=== PATIENT | female | born 1990 | race Hispanic/Latino ===

== ENCOUNTER 2021-05-31 15:48 | Emergency (ER) | payer MEDICAID, OTHER ==
[~2021-05-31] VITALS: Ht 152.4 cm; Wt 54.4 kg
[2021-05-31 15:50] VITALS: BP 137/89
[2021-05-31] MEDS ORDERED: TETANUS/DIPHTHERIA TOXOID [ADULT] 0.5 ML VIAL IM ONE ×2 (16:12→16:30)
[2021-05-31] MEDS ORDERED: HYDROCODONE/ACETAMINOPHEN 5/325 MG TAB ONE (16:12)
[2021-05-31] MEDS ORDERED: CYCLOBENZAPRINE HCL 10 MG TABLET ONE (16:12)
[2021-05-31] MEDS ORDERED: CYCLOBENZAPRINE HCL 10 MG TABLET PO ONE (16:30)
[2021-05-31] MEDS ORDERED: HYDROCODONE/ACETAMINOPHEN 5/325 MG TAB PO ONE (16:30)
[2021-05-31] MEDS ORDERED: NAPR-1180 PO (16:44)
[2021-05-31] MEDS ORDERED: CYCL10TA16 PO (16:44)
== END 2021-05-31 17:36 | disposition home or self-care (01) ==
LOC: EDH 15:48
DX: S20.212A Contusion of left front wall of thorax, initial encounter (principal); S60.211A Contusion of right wrist, initial encounter; S60.212A Contusion of left wrist, initial encounter; S80.02XA Contusion of left knee, initial encounter; S60.811A Abrasion of right wrist, initial encounter; S60.812A Abrasion of left wrist, initial encounter; S80.212A Abrasion, left knee, initial encounter; V43.62XA Car passenger injured in collision with other type car in traffic accident, initial encounter; Z79.1 Long term (current) use of non-steroidal anti-inflammatories (NSAID); V49.49XA Driver injured in collision with other motor vehicles in traffic accident, initial encounter; Y93.89 Activity, other specified; Y92.89 Other specified places as the place of occurrence of the external cause; Y99.8 Other external cause status
CPT/HCPCS: 71045; 73110; 73562; 81025; 90471; 90714; 96372

== ENCOUNTER 2023-07-17 10:26 | Emergency (ER) | payer OTHER ==
[~2023-07-17] VITALS: Ht 149.9 cm; Wt 54.4 kg
[~2023-07-17 10:26] MED LIST: CYCL10TA16 PO; NAPR-1180 PO
[2023-07-17 10:29] VITALS: BP 137/69; PULSE 88; RESP 16
[2023-07-17 11:11] LABS: BASOPHILS # (AUTO) 0.02 K/uL (0.00-0.20); BASOPHILS % (AUTO) 0.1 % (0.0-5.0); EOSINOPHILS # (AUTO) 0.02 K/uL (0.00-0.70); EOSINOPHILS % (AUTO) 0.1 % (0.0-8.0); HEMATOCRIT 38.2 % (36-48); IMMATURE GRANULOCYTE ABSOLUTE 0.07 K/uL (0-1); LYMPHOCYTES # (AUTO) 1.4 K/uL (1.0-4.8); MEAN CORPUSCULAR HEMOGLOBIN 33.3 pg (27.0-33.0); MEAN CORPUSCULAR HGB CONC 35.1 g/dL (32.0-36.0); MONOCYTES # (AUTO) 0.3 K/uL (0.1-1.0); MONOCYTES % (AUTO) 2.2 % (3.0-13.0); NEUTROPHILS # (AUTO) 13.4 K/uL (1.8-7.7); NEUTROPHILS % (AUTO) 88.1 % (40.0-77.0); PLATELET COUNT (AUTO) 240 K/uL (130-400); RED BLOOD CELL COUNT(AUTO) 4.02 MIL/uL (4.00-5.50); RED CELL DISTRIBUTION WIDTH 13.2 % (11.0-15.5); WHITE BLOOD COUNT (AUTO) 15.2 K/uL (4.8-10.8)
[2023-07-17 11:48] LABS: ALBUMIN 3.1 g/dL (3.5-5.0); BILIRUBIN,TOTAL 0.3 mg/dL (0.2-1.0); CREATININE 0.6 mg/dL (0.5-1.5); POTASSIUM 3.9 mmol/L (3.5-5.1); TOTAL PROTEIN, SERUM 7.2 g/dL (6.0-8.3)
[2023-07-17 12:10] LABS: APPEARANCE,URINE CLEAR (CLEAR); BILIRUBIN,URINE NEGATIVE (NEGATIVE); COLOR,URINE LIGHT-YELLOW (YELLOW); GLUCOSE, URINE (UA) NEGATIVE (NEGATIVE); KETONES,URINE NEGATIVE (NEGATIVE); LEUKOCYTE ESTERASE ,URINE NEGATIVE Leu/uL (NEGATIVE); NITRATE,URINE NEGATIVE (NEGATIVE); OCCULT BLOOD,URINE NEGATIVE (NEGATIVE); PH,URINE 5.5 (5.0-8.0); PROTEIN,URINE NEGATIVE (NEGATIVE); UROBILINOGEN,URINE 0.2 mg/dL (0.2-1.0)
[2023-07-17 12:12] LABS: ADD UA MICROSCOPIC NO
[2023-07-17 12:25] LABS: HCG,QUALITATIVE URINE POSITIVE (NEGATIVE)
[2023-07-17] MEDS ORDERED: AZIT250T9 PO (13:09)
[2023-07-17] MEDS ORDERED: ONDA4TAB10 PO (13:09)
== END 2023-07-17 15:04 | disposition home or self-care (01) ==
LOC: EDH 10:26
DX: O26.892 Other specified pregnancy related conditions, second trimester (principal); A05.9 Bacterial foodborne intoxication, unspecified; O21.9 Vomiting of pregnancy, unspecified; D72.829 Elevated white blood cell count, unspecified; K52.9 Noninfective gastroenteritis and colitis, unspecified; Z3A.22 22 weeks gestation of pregnancy; Z79.899 Other long term (current) drug therapy
CPT/HCPCS: 36415; 76805; 80053; 81003; 81025; 83605; 83690; 84702; 85025; 87040

== ENCOUNTER 2023-10-15 14:49 | Observation (INO) | payer MEDICAID ==
[~2023-10-15] VITALS: Ht 152.4 cm; Wt 59.0 kg
[~2023-10-15 14:49] MED LIST changes: +AZIT250T9 PO; +ONDA4TAB10 PO
[2023-10-15 14:57] VITALS: BP 118/44; PULSE 108; RESP 20
[2023-10-15 15:55] LABS: APPEARANCE,URINE CLOUDY (CLEAR); BILIRUBIN,URINE NEGATIVE (NEGATIVE); COLOR,URINE YELLOW (YELLOW); GLUCOSE, URINE (UA) NEGATIVE (NEGATIVE); KETONES,URINE 150 mg/dL (NEGATIVE); LEUKOCYTE ESTERASE ,URINE NEGATIVE Leu/uL (NEGATIVE); NITRATE,URINE NEGATIVE (NEGATIVE); OCCULT BLOOD,URINE NEGATIVE (NEGATIVE); PH,URINE 5.5 (5.0-8.0); PROTEIN,URINE 50 mg/dL (NEGATIVE)
[2023-10-15 15:57] LABS: ADD UA MICROSCOPIC YES
[2023-10-15 16:06] LABS: BACTERIA,URINE FEW /HPF (None Seen); CALCIUM OXALATE CRYSTALS,UR RARE /LPF (None Seen); MUCUS,URINE RARE LPF (None Seen); SQUAMOUS EPITHELIAL CELL,UR FEW /HPF (0-2); UNCLASSIFIED CRYSTAL 19 /HPF (None Seen)
[2023-10-15] MEDS: SIMETHICONE 80 MG TAB.CHEW PO ONE (16:55)
[2023-10-15] MEDS: ONDANSETRON 4MG INJ IVP PRN (16:56)
[2023-10-15] MEDS: TERBUTALINE SULFATE VIAL 1MG/ML SQ PRN (16:56)
[2023-10-15] MEDS: LACTATED RINGERS 1000ML IV PRN (16:56)
[2023-10-15 17:08] LABS: HEMATOCRIT 36.6 % (36-48); MEAN CORPUSCULAR HEMOGLOBIN 33.8 pg (27.0-33.0); MEAN CORPUSCULAR HGB CONC 36.1 g/dL (32.0-36.0); MEAN CORPUSCULAR VOLUME 93.8 fL (79-99); PLATELET COUNT (AUTO) 141 K/uL (130-400); RED CELL DISTRIBUTION WIDTH 13.1 % (11.0-15.5)
[2023-10-15 17:21] LABS: CREATININE 0.7 mg/dL (0.5-1.0); POTASSIUM 3.9 mmol/L (3.5-5.1)
[2023-10-15 17:26] LABS: ALBUMIN 2.4 g/dL (3.5-5.0); BILIRUBIN,TOTAL 0.6 mg/dL (0.2-1.0); TOTAL PROTEIN, SERUM 6.5 g/dL (6.0-8.3)
== END 2023-10-15 17:55 | disposition home or self-care (01) ==
LOC: EDH 14:49 → LDH 14:50
PROVIDERS: ADMIT Obstetrics & Gynecology; ATTEND Obstetrics & Gynecology
DX: O21.2 Late vomiting of pregnancy (principal); O24.419 Gestational diabetes mellitus in pregnancy, unspecified control; O26.893 Other specified pregnancy related conditions, third trimester; R10.11 Right upper quadrant pain; Z3A.34 34 weeks gestation of pregnancy
CPT/HCPCS: 96374; 96361; 96372; 82150; 80053; 83690; 85027; 81001; 36415; 76705; G0378 ×3; G0379; J7120; J3105; J2405; 96360

== ENCOUNTER 2024-02-20 14:27 | Emergency (ER) | payer MEDICAID ==
[~2024-02-20] VITALS: Ht 152.4 cm; Wt 44.9 kg
[~2024-02-20 14:27] MED LIST changes: -AZIT250T9 PO; -CYCL10TA16 PO; +IBUP-2088 PO; -NAPR-1180 PO; -ONDA4TAB10 PO
[2024-02-20] MEDS: LACTULOSE 20 GM/30 ML UDCUP PO ONE (15:30)
[2024-02-20] MEDS ORDERED: GOLY4L PO (16:08)
[2024-02-20 16:29] VITALS: BP 121/81; PULSE 86; RESP 18; O2SAT 100
== END 2024-02-20 16:32 | disposition home or self-care (01) ==
LOC: EDH 14:27
DX: K59.00 Constipation, unspecified (principal); Z79.899 Other long term (current) drug therapy
CPT/HCPCS: 36415; 74018; 84703